=== PATIENT | female | born 1975 | race Two or more races ===

== ENCOUNTER 2021-05-11 08:56 | Emergency (ER) | payer OTHER ==
[~2021-05-11] VITALS: Ht 157.5 cm; Wt 56.7 kg
--- NOTE | 2021-05-11 09:17 | NUR ---
BIBS FROM HOME WITH COMPLAINTS OF LOWER ABDOMINAL PAIN AND DYSURIA. A/O X4. STABLE ON ROOM AIR. MD AT BEDSIDE FOR EVAL.
--- NOTE | 2021-05-11 09:18 | NUR ---
URINE COLLECTED AND SENT TO THE LAB
[2021-05-11 09:42] LABS: BILIRUBIN,URINE Negative (NEGATIVE); COLOR,URINE YELLOW (YELLOW); LEUKOCYTE ESTERASE ,URINE Trace (NEGATIVE); NITRITE, URINE Positive (NEGATIVE); PH,URINE 8.5 (5.0-8.0); PROTEIN,URINE 100 mg/dl (NEGATIVE); UGLUCOSE 100 MG/DL mg/dL (NEGATIVE)
[2021-05-11 09:46] LABS: BACTERIA,URINE 1+ /HPF (None Seen); SQUAMOUS EPITHELIAL CELL,UR Few /HPF (None Seen)
[2021-05-11] MEDS ORDERED: NITR100C6 PO (09:51)
--- NOTE | 2021-05-11 09:51 | NUR ---
DR. KAPLAN AT BEDSIDE FOR PELVIC EXTERNAL EXAM ONLY, CHAPERONED BY A FEMALE NURSE.
--- NOTE | 2021-05-11 09:57 | NUR ---
DISCHARGED PT TO HOME IN STBALE CONDITION. A/O X4. STABLE ON ROOM AIR, NO SOB. AMBULATORY. PRESCRIPTION AND DISCHARGE INSTRUCTIONS GIVEN TO PT, VERBALIZED UNDERSTANDING.
[2021-05-11 10:00] VITALS: BP 130/82
== END 2021-05-11 10:02 | disposition home or self-care (01) ==
LOC: ER 09:03
DX: N39.0 Urinary tract infection, site not specified (principal)
CPT/HCPCS: 81001; 84703-TC; 87086-TC

== ENCOUNTER 2023-11-09 21:25 | Emergency (ER) | payer OTHER ==
[~2023-11-09] VITALS: Ht 160 cm; Wt 66.2 kg
[~2023-11-09 21:25] MED LIST: NITR100C6 PO
[2023-11-09 22:46] VITALS: TEMP 98.1
[2023-11-09] MEDS ORDERED: IBUP-1955 PO (23:16)
[2023-11-09] MEDS ORDERED: IBUPROFEN 600 MG TABLET ONE (23:23)
[2023-11-09] MEDS ORDERED: CYCLOBENZAPRINE 10 MG TABLET ONE (23:23)
[2023-11-09 23:30] VITALS: BP 152/89; O2SAT 98
[2023-11-09] MEDS ORDERED: CYCLOBENZAPRINE 10 MG TABLET PO ONE (23:30)
[2023-11-09] MEDS ORDERED: IBUPROFEN 600 MG TABLET PO ONE (23:30)
== END 2023-11-09 23:31 | disposition home or self-care (01) ==
LOC: ER 21:30
DX: R51.9 Headache, unspecified (principal); Z79.899 Other long term (current) drug therapy; Y08.89XA Assault by other specified means, initial encounter; Y93.89 Activity, other specified; Y92.89 Other specified places as the place of occurrence of the external cause; Y99.8 Other external cause status

== ENCOUNTER 2025-02-13 06:20 | Emergency (ER) | payer OTHER ==
[~2025-02-13] VITALS: Ht 154.9 cm; Wt 64.4 kg
[~2025-02-13 06:20] MED LIST changes: +IBUP-1955 PO
[2025-02-13 06:49] VITALS: BP 134/82; TEMP 98.2
[2025-02-13] MEDS ORDERED: IBUP-1957 PO (07:12)
[2025-02-13 07:32] VITALS: O2SAT 98
== END 2025-02-13 07:34 | disposition home or self-care (01) ==
LOC: ER 06:23
DX: S63.501A Unspecified sprain of right wrist, initial encounter (principal); Z79.1 Long term (current) use of non-steroidal anti-inflammatories (NSAID); X58.XXXA Exposure to other specified factors, initial encounter; Y93.9 Activity, unspecified; Y92.89 Other specified places as the place of occurrence of the external cause; Y99.8 Other external cause status
CPT/HCPCS: 73110